=== PATIENT | female | born 1990 | race Caucasian/White ===

== ENCOUNTER 2021-04-26 10:01 | Outpatient (CLI) | payer BC | END 2021-04-26 23:59 | disposition home or self-care (01) | LOC: LAB 10:01 | PROVIDERS: ATTEND Family Medicine | DX: R10.9 Unspecified abdominal pain (principal) | CPT/HCPCS: 87086 ==

== ENCOUNTER 2021-05-18 19:21 | Outpatient (CLI) | payer BC ==
[2021-05-18 19:59] LABS: BASOPHILS % (AUTO) 0.4 %; EOSINOPHILS # (AUTO) 0.1 10^3/uL (0.0-0.7); EOSINOPHILS % (AUTO) 0.9 %; HCT - HEMATOCRIT 37.4 % (37.0-47.0); HGB - HEMOGLOBIN 12.4 g/dL (12.0-16.0); LYMPHOCYTES # (AUTO) 2.6 10^3/uL (1.5-3.5); LYMPHOCYTES % (AUTO) 23.4 %; MEAN CORPUSCULAR HEMOGLOBIN 29.4 pg (27.0-31.0); MEAN CORPUSCULAR HGB CONC 33.2 g/dL (32.0-36.0); MEAN CORPUSCULAR VOLUME 88.6 fL (81.0-99.0); MEAN PLATELET VOLUME 9.4 fL (7.9-10.8); MONOCYTES # (AUTO) 0.5 10^3/uL (0.0-1.0); MONOCYTES % (AUTO) 4.9 %; NEUTROPHILS # (AUTO) 7.6 10^3/uL (1.5-6.6); NEUTROPHILS % (AUTO) 69.9 %; PLT - PLATELET COUNT 353 10^3/uL (130-450); RED BLOOD COUNT 4.22 10^6/uL (4.20-5.40); RED CELL DISTRIBUTION WIDTH 12.1 % (12.0-15.0); WHITE BLOOD COUNT 10.9 x10^3/uL (4.8-10.8)
[2021-05-18 20:03] LABS: BILIRUBIN,URINE NEGATIVE (NEGATIVE); GLUCOSE, URINE (UA) NEGATIVE (NEGATIVE); KETONES,URINE (UA) NEGATIVE (NEGATIVE); LEUKOCYTE ESTERASE, URINE NEGATIVE (NEGATIVE); NITRITE,URINE NEGATIVE (NEGATIVE); OCCULT BLOOD,URINE NEGATIVE (NEGATIVE); PROTEIN,URINE NEGATIVE (NEGATIVE); UROBILINOGEN,URINE 0.2 (NORMAL) E.U./dL (NORMAL)
[2021-05-18 20:05] LABS: CLARITY,URINE CLEAR (CLEAR)
[2021-05-18 20:10] LABS: BACTERIA,URINE Few /HPF (None Seen); RBC,URINE 0-5 /HPF (0-5); SQUAMOUS EPITHELIAL CELL,UR MOD Squamous (<= Few); WBC,URINE 0-3 /HPF (0-5)
--- NOTE | 2021-05-18 21:30 | Ultrasound Report ---
PROCEDURE: OB First Trimester INDICATIONS: +PREG TEST OUTSIDE/PRIOR DATING DATA: Last menstrual period (LMP): Unknown LMP-based estimated date of delivery (MAGEN): Unknown. First dating scan (date and location): 05/18/2021. Estimated date of delivery (MAGEN) from first dating scan: 12/23/2021. The below data below was generated using the study generated MAGEN of 12/23/2021 TECHNIQUE: Real-time scanning was performed of the fetus and maternal pelvic organs, with image documentation. COMPARISON: None FINDINGS: Embryo: Single intrauterine gestational sac is seen with fetus and yolk sac seen. [place]-rump length measures 2.08 cm. Estimated gestational age is 8 weeks, 5 days. Heart rate: 178 bpm. Small subchorionic hemorrhage is seen measures 1.03 x 0.84 x 2.09 cm in size. Maternal organs: Corpus luteum is seen in right ovary and measures 1.8 x 2.3 x 1.8 cm in size. Left o vary is within normal limits. IMPRESSION: 1. Single live intrauterine gestation with fetus and yolk sac seen. heart rate is 178 bpm. Myranda mated gestational age is 8 weeks, 5 days. 2. Small subchorionic hemorrhage as above. 3. Small corpus luteum in right ovary as above. Reviewed by: Jarrell Barillas MD on 05/18/2021 9:28 PM PST Approved by: Jarrell Barillas MD on 05/18/2021 9:28 PM PST Station ID: [id number]
[2021-05-20 15:46] LABS: HEPATITIS B SURFACE ANTIGEN NON-REACTIVE (NON-REACTIVE); HEPATITIS C ANTIBODY NON-REACTIVE (NON-REACTIVE)
[2021-05-20 17:26] LABS: HIV AG/AB 4TH GEN NON-REACTIVE (NON-REACTIVE)
== END 2021-05-18 19:22 | disposition home or self-care (01) ==
LOC: DI 19:21
PROVIDERS: ATTEND Nurse Practitioner Obstetrics & Gynecology
DX: Z36.89 Encounter for other specified antenatal screening (principal); O20.8 Other hemorrhage in early pregnancy; O34.82 Maternal care for other abnormalities of pelvic organs, second trimester; N83.11 Corpus luteum cyst of right ovary; Z3A.08 8 weeks gestation of pregnancy
CPT/HCPCS: 36415; 81001; 85025; 86592; 86762; 86787; 86803; 86850; 86900; 86901; 87086; 87340; 87389

== ENCOUNTER 2021-06-03 08:00 | Outpatient (CLI) | payer BC ==
[2021-06-03 22:56] LABS: CHLAMYDIA TRACHOMATIS DNA NEGATIVE (NEGATIVE); NEISSERIA GONORRHOEAE DNA NEGATIVE (NEGATIVE); TRICHOMONAS VAGINALIS DNA NEGATIVE (NEGATIVE)
== END 2021-06-03 23:59 | disposition home or self-care (01) ==
LOC: LAB 08:00
PROVIDERS: ATTEND Nurse Practitioner Obstetrics & Gynecology
DX: Z11.3 Encounter for screening for infections with a predominantly sexual mode of transmission (principal)
CPT/HCPCS: 87491; 87591; 87661

== ENCOUNTER 2021-06-08 12:46 | Outpatient (CLI) | payer BC | END 2021-06-08 12:47 | disposition home or self-care (01) | LOC: LAB 12:46 | PROVIDERS: ATTEND Nurse Practitioner Obstetrics & Gynecology | DX: Z36.8A Encounter for antenatal screening for other genetic defects (principal) | CPT/HCPCS: 36415; 81599 ==

== ENCOUNTER 2021-06-30 17:04 | Outpatient (CLI) | payer BC | END 2021-06-30 17:05 | disposition home or self-care (01) | LOC: LAB 17:04 | PROVIDERS: ATTEND Nurse Practitioner Obstetrics & Gynecology | DX: Z34.90 Encounter for supervision of normal pregnancy, unspecified, unspecified trimester (principal); Z36.89 Encounter for other specified antenatal screening; Z36.8A Encounter for antenatal screening for other genetic defects | CPT/HCPCS: 82105; 82677; 84163; 84702; 86336 ==

== ENCOUNTER 2021-07-06 14:23 | Emergency (ER) | payer BC ==
[2021-07-06 15:39] LABS: BASOPHILS % (AUTO) 0.3 %; EOSINOPHILS # (AUTO) 0.1 10^3/uL (0.0-0.7); EOSINOPHILS % (AUTO) 0.6 %; HCT - HEMATOCRIT 39.2 % (37.0-47.0); HGB - HEMOGLOBIN 12.8 g/dL (12.0-16.0); LYMPHOCYTES # (AUTO) 1.3 10^3/uL (1.5-3.5); LYMPHOCYTES % (AUTO) 16.6 %; MEAN CORPUSCULAR HGB CONC 32.7 g/dL (32.0-36.0); MEAN CORPUSCULAR VOLUME 88.7 fL (81.0-99.0); MEAN PLATELET VOLUME 8.9 fL (7.9-10.8); MONOCYTES # (AUTO) 0.4 10^3/uL (0.0-1.0); MONOCYTES % (AUTO) 5.4 %; NEUTROPHILS # (AUTO) 5.9 10^3/uL (1.5-6.6); NEUTROPHILS % (AUTO) 76.7 %; PLT - PLATELET COUNT 267 10^3/uL (130-450); RED BLOOD COUNT 4.42 10^6/uL (4.20-5.40); RED CELL DISTRIBUTION WIDTH 12.5 % (12.0-15.0); WHITE BLOOD COUNT 7.7 x10^3/uL (4.8-10.8)
[2021-07-06] MEDS: SODIUM CHLORIDE 0.9% 1,000 ML IV STA (15:43)
[2021-07-06 15:48] LABS: ALBUMIN 3.3 g/dL (3.2-5.5); ALBUMIN/GLOBULIN RATIO 0.9 (1.0-2.2); ALKALINE PHOSPHATASE 67 IU/L (42-121); ALT ALANINE AMINOTRANSFERASE 32 IU/L (10-60); AST ASPARTATE AMINOTRANSFERASE 24 IU/L (10-42); BILIRUBIN,TOTAL < 0.2 mg/dL (0.2-1.0); BUN - BLOOD UREA NITROGEN 7 mg/dL (6-20); CALCIUM 8.7 mg/dL (8.5-10.3); CARBON DIOXIDE - CO2 24 mmol/L (21-32); CHLORIDE 99 mmol/L (101-111); CREATININE 0.4 mg/dL (0.4-1.0); GFR - MDRD 189 (>89); GLUCOSE 101 mg/dL (70-100); LIPASE 20 U/L (22-51); POTASSIUM 3.9 mmol/L (3.5-5.0); SODIUM 133 mmol/L (135-145)
--- NOTE | 2021-07-06 15:52 | ED Physician Documentation ---
PD HPI URI - Stated complaint Stated Complaint: C+ CONGESTION/DIZZY - Chief complaint Chief Complaint: General - History obtained from History obtained from: Patient - History of Present Illness Timing - onset: How many days ago (5) Timing duration: Days (5) Timing details: Abrupt onset, Still present Associated symptoms: Fever, Chills, Nasal congestion, Sore throat, Dry cough, NVD (nausea with some vomiting few times. not much diarrhea per se.), Other (somewhat lightheaded, has general headache, worse in back of head, and some vertigo with position change.). No: Chest pain, Dyspnea Contributing factors: Sick contact ( tested positive for COVID, and patient tested positive 4 days ago.) Worsened by: Activity Similar symptoms before: Has not had sx before Recently seen: Clinic Review of Systems Constitutional: reports: Fever, Chills, Myalgias Nose: reports: Rhinorrhea / runny nose, Congestion Throat: reports: Sore throat Cardiac: denies: Chest pain / pressure Respiratory: reports: Cough (mild). denies: Dyspnea, Wheezing GI: reports: Nausea. denies: Abdominal Pain, Diarrhea : reports: Now EGA (17 weeks). denies: Dysuria, Discharge, Vaginal bleeding PD PAST MEDICAL HISTORY - Past Medical History Cardiovascular: None Respiratory: None Neuro: None Endocrine/Autoimmune: None - Present Medications Home Medications: Ambulatory Orders Medication Instructions Recorded Confirmed Acetaminophen [Acetaminophen Extra 500 mg PO QID PRN #50 tablet 07/06/21 Strength] Meclizine HCl [Motion Sickness] 25 mg PO Q6H PRN #20 tablet 07/06/21 Pnv No.95/Ferrous Fum/Folic AC 2 tab PO DAILY 07/06/21 07/06/21 [ Tablet] dexAMETHasone [Decadron] 4 mg PO DAILY #5 tablet 07/06/21 - Allergies Allergies/Adverse Reactions: Allergies Allergy/AdvReac Type Severity Reaction Status Date / Time No Known Drug Allergies Allergy Verified 07/06/21 14:40 - Living Situation Living Situation: reports: With spouse/s.o. Living Arrangement: reports: At home PD ED PE NORMAL - Vitals Vital signs reviewed: Yes - General General: Alert and oriented X 3, Well developed/nourished - HEENT HEENT: Ears normal, Moist mucous membranes, Pharynx benign - Neck Neck: Supple, no meningeal sign, No adenopathy - Cardiac Cardiac: RRR, No murmur - Respiratory Respiratory: Clear bilaterally - Abdomen Abdomen: Soft, Non tender, Other (gravid with fundus 2-3 cm below umbilicus. Nontender. BEdside U/S showing normal FHR, movement, position. ) - Back Back: No CVA TTP - Derm Derm: Normal color, Warm and dry - Extremities Extremities: No edema, No calf tenderness / cord - Neuro Neuro: Alert and oriented X 3, No motor deficit, Normal speech Results - Vitals Vitals: Vital Signs - 24 hr 07/06/21 17:36 Heart Rate 79 Respiratory 18 Rate Blood Pressure 121/84 H O2 Saturation 100 Oxygen O2 Source Room air - Labs Labs: Laboratory Tests 07/06/21 07/06/21 07/06/21 15:28 15:28 15:30 WBC 7.7 RBC 4.42 Hgb 12.8 Hct 39.2 MCV 88.7 MCH 29.0 MCHC 32.7 RDW 12.5 Plt Count 267 MPV 8.9 Neut # (Auto) 5.9 Lymph # (Auto) 1.3 L [place] # (Auto) 0.4 Eos # (Auto) 0.1 Baso # (Auto) 0.0 Absolute Nucleated RBC 0.00 Nucleated RBC % 0.0 Sodium 133 L Potassium 3.9 Chloride 99 L Carbon Dioxide 24 Anion Gap 10.0 BUN 7 Creatinine 0.4 Estimated GFR (MDRD) 189 Glucose 101 H Calcium 8.7 Total Bilirubin < 0.2 L AST 24 ALT 32 Alkaline Phosphatase 67 Total Protein 7.0 Albumin 3.3 Globulin 3.7 Albumin/Globulin Ratio 0.9 L Lipase 20 L Urine Color YELLOW Urine Clarity CLOUDY Urine pH 7.0 Ur Specific [place] 1.025 Urine Protein NEGATIVE Urine Glucose (UA) NEGATIVE Urine Ketones 40 H Urine Occult Blood NEGATIVE Urine Nitrite NEGATIVE Urine Bilirubin NEGATIVE Urine Urobilinogen 0.2 (NORMAL) Ur Leukocyte Esterase NEGATIVE Urine RBC None Seen Urine WBC 0-3 Ur Squamous Epith Cells MOD Squamous H Amorphous Sediment Few Urine Bacteria None Seen Ur Microscopic Review INDICATED Urine Culture Comments NOT INDICATED PD MEDICAL DECISION MAKING - ED course Complexity details: re-evaluated patient (given IV fluids to ensure fully hydrated. BEdside U/S showing normal FHR, movement, and position. ), considered differential (has COVID by home rapid Ag test. Having moderate URI symptoms and nausea, mild cough/dyspnea. FEeling some lightheaded, but more so describes vertigo, presume related to nasosinus congestion. General headache but does not appear meningitic. ), d/w patient Departure - Departure Disposition: 01 Home, Self Care Clinical Impression: Vertigo, COVID-19 Headache Qualifiers: Headache type: unspecified Headache chronicity pattern: acute headache Intractability: not intractable Qualified Code(s): R51.9 - Headache, unspecified Qualifiers: Weeks of gestation: 17 weeks Qualified Code(s): Z3A.17 - 17 weeks gestation of Condition: Stable Record reviewed to determine appropriate education?: Yes Follow-Up: Joanne Brink CNM, [facility] [Primary Care Provider] - Prescriptions: Acetaminophen [Acetaminophen Extra Strength] 500 mg PO QID PRN #50 tablet PRN Reason: Pain dexAMETHasone [Decadron] 4 mg PO DAILY #5 tablet Meclizine HCl [Motion Sickness] 25 mg PO Q6H PRN #20 tablet PRN Reason: Vertigo Comments: Your symptoms seem consistent with the upper respiratory component with Covid including the congestion and pressure and headache. We gave you some IV fluids to ensure not under hydrated. The vertigo would relate to some inflammation in the inner ear. Treating with some antihistamine and anti-inflammatory can help with the symptoms. Stay well-hydrated. Tylenol 500 mg every 4-6 hours for pain. At this point in you can still add some ibuprofen or naproxen 2 tablets 3 times a day if needed. Do not take any NSAIDs after 20 weeks of . Tylenol is okay through all of . Recheck if not improving well over the next several days or so. Follow-up with your women's health clinic. I transmitted the prescriptions to [facility] pharmacy in [place]. Discharge Date/Time: 07/06/21 17:52
[2021-07-06 16:09] LABS: BILIRUBIN,URINE NEGATIVE (NEGATIVE); GLUCOSE, URINE (UA) NEGATIVE (NEGATIVE); KETONES,URINE (UA) 40 mg/dL (NEGATIVE); LEUKOCYTE ESTERASE, URINE NEGATIVE (NEGATIVE); NITRITE,URINE NEGATIVE (NEGATIVE); OCCULT BLOOD,URINE NEGATIVE (NEGATIVE); PROTEIN,URINE NEGATIVE (NEGATIVE); UROBILINOGEN,URINE 0.2 (NORMAL) E.U./dL (NORMAL)
[2021-07-06 16:13] LABS: CLARITY,URINE CLOUDY (CLEAR)
[2021-07-06 16:16] LABS: AMORPHOUS SEDIMENT,UR Few /LPF; BACTERIA,URINE None Seen /HPF (None Seen); RBC,URINE None Seen /HPF (0-5); SQUAMOUS EPITHELIAL CELL,UR MOD Squamous (<= Few); WBC,URINE 0-3 /HPF (0-5)
[2021-07-06] MEDS: DEXAMETHASONE 10 MG/ML VIAL IVP STA (16:50)
[2021-07-06] MEDS: MECLIZINE 12.5 MG TABLET PO STA (16:50)
[2021-07-06] MEDS: KETOROLAC 15 MG/ML VIAL IVP STA (16:50)
[2021-07-06] MEDS: ACETAMINOPHEN 325 MG TABLET PO STA (17:28)
[2021-07-06 17:38] VITALS: BP 121/84
== END 2021-07-06 17:52 | disposition home or self-care (01) ==
LOC: ED 14:23
DX: O98.512 Other viral diseases complicating pregnancy, second trimester (principal); U07.1 COVID-19; O26.92 Pregnancy related conditions, unspecified, second trimester; R51.9 Headache, unspecified; Z3A.17 17 weeks gestation of pregnancy
CPT/HCPCS: 36415; 80053; 81001; 83690; 85025; 96361; 96374; 99283; A9270; 81003; 87086

== ENCOUNTER 2021-08-05 16:39 | Outpatient (CLI) | payer BC ==
--- NOTE | 2021-08-05 20:10 | Ultrasound Report ---
PROCEDURE: OB Detailed Eval INDICATIONS: SUPERVISION OF NORMAL OUTSIDE/PRIOR DATING DATA: Last menstrual period (LMP): Unknown. LMP-based estimated date of delivery (MAGEN): Unknown. First dating scan (date and location): 05/18/2021. Estimated date of delivery (MAGEN) from first dating scan: 12/23/2021. The below data below was generated using the ultrasound MAGEN of 12/23/2021 TECHNIQUE: Real-time scanning was performed of the fetus, with image documentation and biometric measurements. Endovaginal scanning: Not performed COMPARISON: 05/18/2021 FINDINGS: General: A single living intrauterine gestation is present. Presentation: Variable Placenta: Placental position is fundal and posterior, without previa. Amniotic fluid index: 15 cm, within normal limits for gestational age. heart rate: 162 beats per minute. Maternal cervical canal: 3.2 cm long, closed; normal length is 2.5 cm or more. biometrics: Biparietal diameter: 4.4 cm, 19 weeks 2 days Head circumference: 16.9 cm, 19 weeks 4 days Abdominal circumference: 14.67 cm, 20 weeks 0 days Femur length: 3.11 cm, 19 weeks 5 days Estimated gestational age from initial scan: 20 weeks 0 days Composite gestational age from present scan: 19 weeks 4 days Estimated weight and percentile: 312 g, 32.7 percentile Measurement variability in biometric dating: +/- 10 days from 12-20 weeks gestation, +/- 2 weeks from 20-30 weeks gestation, +/- 3 weeks at 30 weeks gestation or later. Anatomic survey: Neuro: Ventricles are normal at less than 10 mm. Cisterna magna is normal at 3-11 mm. Cerebellum i s normal in size and morphology. Nuchal skin fold: Normal at less than 6 mm between 14 and 20 weeks gestational age. Face: Nose and lips, facial profile are normal. Spine: No evidence for spina bifida. Heart: 4-chambered heart is present, with normal ventricular outflow tracts. Diaphragm: Diaphragm is intact. Stomach: Left-sided stomach is present. Kidneys: No hydronephrosis. Normal is less than 5 mm in 2nd trimester, less than 7 mm in 3rd trimester. Cord: 3 vessel cord has orthotopic insertion. Bladder: Normal in size. Extremities: All 4 extremities are visualized. IMPRESSION: 1. Living second trimester intrauterine . Current ultrasound age is 3 days less than clinica l dates based on initial ultrasound. 2. Normal anatomy study. Reviewed by: Abel Solorio MD on 08/05/2021 8:09 PM [facility] [place] Approved by: Abel Solorio MD on 08/05/2021 8:09 PM [facility] [place] Station ID: [id number]
== END 2021-08-05 16:40 | disposition home or self-care (01) ==
LOC: DI 16:39
PROVIDERS: ATTEND Nurse Practitioner Obstetrics & Gynecology
DX: Z34.02 Encounter for supervision of normal first pregnancy, second trimester (principal); Z36.89 Encounter for other specified antenatal screening; Z3A.19 19 weeks gestation of pregnancy

== ENCOUNTER 2021-10-05 17:29 | Outpatient (CLI) | payer BC ==
[2021-10-05 18:47] LABS: HCT - HEMATOCRIT 35.1 % (37.0-47.0); HGB - HEMOGLOBIN 11.5 g/dL (12.0-16.0); MEAN CORPUSCULAR HEMOGLOBIN 29.6 pg (27.0-31.0); MEAN CORPUSCULAR HGB CONC 32.8 g/dL (32.0-36.0); MEAN CORPUSCULAR VOLUME 90.2 fL (81.0-99.0); RED BLOOD COUNT 3.89 10^6/uL (4.20-5.40); RED CELL DISTRIBUTION WIDTH 12.3 % (12.0-15.0); WHITE BLOOD COUNT 10.5 x10^3/uL (4.8-10.8)
== END 2021-10-05 17:30 | disposition home or self-care (01) ==
LOC: LAB 17:29
PROVIDERS: ATTEND Nurse Practitioner Obstetrics & Gynecology
DX: Z36.9 Encounter for antenatal screening, unspecified (principal)
CPT/HCPCS: 36415; 82950; 85027

== ENCOUNTER 2021-12-06 06:49 | Inpatient (IN) | payer BC ==
[2021-12-06] MEDS ORDERED: TERBUTALINE 1 MG/ML VIAL SUBQ ONE (07:58)
--- NOTE | 2021-12-06 08:00 | HISTORY & PHYSICAL EXAMINATION ---
Admit History - : 1 Parity: 0 Care: positive: [facility] Risk/History: positive: None Complications This : positive: Other ( malpresentation) Smoking Status: Never smoker - Mother's Labs Mother's Blood Type: positive: O Mother's RH: positive: Positive GBS: positive: Group B Step Negative Rubella Status: positive: Immune - Other Maternal History Other Maternal History: HPI: Patient is a 31-year-old G1, P0 at 37 weeks 4 days gestation here for external cephalic version. She has good movement. Few contractions over the weekend, but none today. Denies loss of fluid. No BAILEY/BV or RUQP. No vaginal bleeding. Denies nausea and vomiting. Denies urinary urgency or dysuria. course was unremarkable. She has managed by KELLY Lawrence All other symptoms reviewed and were negative except per HPI. PMH Unremarkable PSH Unremarkable OB History SH Denies tobacco, uncle, drugs Family History Noncontributory Allergies No known drug allergies Medications vitamins Physical exam: General: Alert, oriented, no acute distress Head: Normal cephalic atraumatic Eyes: PERRLA, extraocular motions intact. Respiratory: Normal rate of respiration. No accessory muscle use, normal respiratory effort. Cardiovascular: Regular rate and rhythm Abdomen: Gravid, nontender, nondistended Extremities: Normal range of motion Neuro: Oriented x3. Normal movements Psych: Appropriate mood and affect. Normal judgment and insight FHT: 130 beats per baseline, moderate variability, accelerations present, no decelerations. Performed and read 12/06/21. [place]: 3 to 5 minutes on monitor, but not palpable and patient cannot sense. Plan Two 11-year-old G1, P0 at 37 weeks 4 days gestation with malpresentation 1. malpresentation -Plan for outpatient procedure of external cephalic version. Patient was consented about the risks, benefits, alternatives of external cephalic version. We discussed the risk of rupture of membranes, heart rate aberrations, placental abruption. We also discussed the risk of urgent section if this had complications. She is understanding and wishes to proceed. -We discussed the benefits of epidural in this procedure. She would like to try initially without epidural. Anesthesia will discuss epidural with patient prior to procedure. -Plan for terbutaline for uterine relaxation. 2. 37 weeks gestation -NST, MARCELINO Meds/Allgy - Home Medications Home Medications: Ambulatory Orders Medication Instructions Recorded Confirmed Acetaminophen [Acetaminophen Extra 500 mg PO QID PRN #50 tablet 07/06/21 Strength] Meclizine HCl [Motion Sickness] 25 mg PO Q6H PRN #20 tablet 07/06/21 Pnv No.95/Ferrous Fum/Folic AC 2 tab PO DAILY 07/06/21 07/06/21 [ Tablet] dexAMETHasone [Decadron] 4 mg PO DAILY #5 tablet 07/06/21 - Allergies Allergies/Adverse Reactions: Allergies Allergy/AdvReac Type Severity Reaction Status Date / Time No Known Drug Allergies Allergy Verified 07/06/21 14:40 Physical - Abdominal Exam Vital Signs: Temp Pulse Resp BP Pulse Ox 98.6 F 88 20 128/85 H 12/06/21 07:40 12/06/21 07:40 12/06/21 07:40 12/06/21 07:40
--- NOTE | 2021-12-06 08:06 | ANESTHESIA ---
Pre-Anesthesia VS, & Labs - Diagnosis IUP, breech - Procedure version, cervical ripening, induction of labor Vital Signs: Temp Pulse Resp BP Pulse Ox 37 C 88 20 128/85 H 12/06/21 07:40 12/06/21 07:40 12/06/21 07:40 12/06/21 07:40 Height: 5 ft 1 in Weight (kg): 64.41 kg Body Mass Index: 26.8 BMI Classification: Overweight - NPO Last Fluid Intake: this AM - Is Patient ?: Yes - Lab Results Lab results reviewed: Yes Home Medications and Allergies Pnv No.95/Ferrous Fum/Folic AC [ Tablet] 2 tab PO DAILY 07/06/21 Allergies/Adverse Reactions: Allergies Allergy/AdvReac Type Severity Reaction Status Date / Time No Known Drug Allergies Allergy Verified 07/06/21 14:40 Anes History & Medical History - Anesthetic History Anesthesia Complications: reports: No previous complications Family history of Anesthesia Complications: Denies Family history of Malignant Hyperthermia: Denies - Medical History Cardiovascular: reports: None Pulmonary: reports: None Neuro: reports: None Endocrine/Autoimmune: reports: None Smoking Status: Never smoker - Obstetrical History : 1 Parity: 0 Events: reports: None Complications: reports: Other ( malpresentation) Exam General: Alert, Oriented x3, Cooperative Dental: WNL Mouth Openin Fingerbreadth Neck Mobility: Normal Mallampati classification: II Thyromental Distance: 4-6 cm Respiratory: Lungs clear, Normal breath sounds, No respiratory distress Cardiovascular: Regular rate Neurological: Normal speech Mental/Cognitive Status: Alert/Oriented X3, Normal for patient Cognitive Status: Within normal limits Plan Anesthesia Type: Epidural Consent for Procedure(s) Verified and Reviewed: Yes Code Status: Attempt Resuscitation ASA classification: 2-Mild systemic disease Is this case an emergency?: No
[2021-12-06 08:19] LABS: BASOPHILS % (AUTO) 0.4 %; EOSINOPHILS # (AUTO) 0.1 10^3/uL (0.0-0.7); EOSINOPHILS % (AUTO) 0.9 %; HCT - HEMATOCRIT 35.7 % (37.0-47.0); HGB - HEMOGLOBIN 11.4 g/dL (12.0-16.0); LYMPHOCYTES # (AUTO) 2.6 10^3/uL (1.5-3.5); LYMPHOCYTES % (AUTO) 24.8 %; MEAN CORPUSCULAR HEMOGLOBIN 27.6 pg (27.0-31.0); MEAN CORPUSCULAR HGB CONC 31.9 g/dL (32.0-36.0); MEAN CORPUSCULAR VOLUME 86.4 fL (81.0-99.0); MEAN PLATELET VOLUME 9.7 fL (7.9-10.8); MONOCYTES # (AUTO) 0.7 10^3/uL (0.0-1.0); MONOCYTES % (AUTO) 6.3 %; NEUTROPHILS % (AUTO) 66.8 %; PLT - PLATELET COUNT 315 10^3/uL (130-450); RED BLOOD COUNT 4.13 10^6/uL (4.20-5.40); RED CELL DISTRIBUTION WIDTH 12.4 % (12.0-15.0); WHITE BLOOD COUNT 10.4 x10^3/uL (4.8-10.8)
[2021-12-06] MEDS: LACTATED RINGERS 1,000 ML IV SCH ×2 (08:20→15:36)
--- NOTE | 2021-12-06 08:32 | Ultrasound Report ---
PROCEDURE: OB Limited INDICATIONS: external cephalic version OUTSIDE/PRIOR DATING DATA: Last menstrual period (LMP): Unknown. LMP-based estimated date of delivery (MAGEN): Unknown. First dating scan (date and location): 05/18/2021. Estimated date of delivery (MAGEN) from first dating scan: 12/23/2020. The below data below was generated using the ultrasound MAGEN of 12/23/2020 TECHNIQUE: Real-time scanning was performed of the fetus, with image documentation. COMPARISON: OB ultrasound 05/18/2021, 08/05/2021 FINDINGS: A single living intrauterine gestation is present. Presentation: Breech Placenta: Placental position is fundal, without previa. Amniotic fluid index: 11.9 cm, within normal limits for gestational age. Largest pocket 5.9 cm heart rate: 148 beats per minutes. Maternal cervical canal: 4.4 cm long; normal length is 2.5 cm or more. Estimated gestational age from initial scan: 37 weeks 4 days. IMPRESSION: Single live intrauterine with ultrasound gestational age 37 weeks 4 days. Breech position is present. Reviewed by: Ngozi Rangle MD on 12/06/2021 8:30 AM PDT Approved by: Ngozi Rangel MD on 12/06/2021 8:30 AM PDT Station ID: [id number]
[2021-12-06] MEDS ORDERED: ROPIVACAINE 0.2% PF 10 ML VIAL ONE (09:12)
[2021-12-06] MEDS ORDERED: NALBUPHINE 10 MG/ML AMP IVP PRN (09:38)
[2021-12-06] MEDS ORDERED: ROPIVACAINE 0.2% 200 MG/100 ML BAG EP PRN (09:38)
[2021-12-06] MEDS ORDERED: ONDANSETRON 4 MG/2 ML VIAL IVP PRN ×2 (09:38→11:33)
[2021-12-06] MEDS ORDERED: ePHEDrine 50 MG/ML VIAL IVP PRN ×2 (09:38→11:33)
[2021-12-06] MEDS ORDERED: METOCLOPRAMIDE 10 MG/2 ML VIAL IVP PRN ×2 (09:38→11:33)
[2021-12-06] MEDS ORDERED: diphenhydrAMINE INJ 50 MG/ML VIAL IVP PRN (09:38)
[2021-12-06] MEDS ORDERED: NALOXONE 0.4 MG/ML VIAL IVP PRN ×2 (09:38→11:33)
[2021-12-06] MEDS ORDERED: ePHEDrine 50 MG/ML VIAL IVP ONE ×2 (09:49→10:08)
[2021-12-06] MEDS ORDERED: OXYTOCIN 10 UNIT/ML VIAL ONE (10:08)
[2021-12-06] MEDS ORDERED: ROPIVACAINE 0.5% PF 20 ML AMPULE ONE ×2 (10:16→10:48)
[2021-12-06] MEDS ORDERED: METHYLERGONOVINE 0.2 MG/ML VIAL ONE (10:17)
[2021-12-06] MEDS ORDERED: CARBOPROST TROMETHAMINE 250 MCG/ML AMP IM ONE (10:17)
[2021-12-06] MEDS ORDERED: ceFAZolin 1 GM VIAL ONE (10:21)
[2021-12-06] MEDS ORDERED: KETOROLAC 30 MG/ML VIAL ONE (10:31)
[2021-12-06] MEDS ORDERED: ACETAMINOPHEN 1,000 MG/100 ML 100 ML IV ONE (10:38)
[2021-12-06] MEDS ORDERED: LACTATED RINGERS 1,000 ML IV ONE (11:05)
[2021-12-06] MEDS ORDERED: oxyCODONE 5 MG TABLET PO PRN (11:13)
[2021-12-06] MEDS ORDERED: OXYTOCIN/SODIUM CHLORIDE 500 ML IV PRN (11:13)
[2021-12-06] MEDS ORDERED: ONDANSETRON ODT 4 MG TABLET TL PRN (11:13)
[2021-12-06] MEDS ORDERED: SODIUM CHLORIDE FLUSH 0.9% 10 ML SYRINGE IVP PRN (11:13)
[2021-12-06] MEDS ORDERED: SIMETHICONE CHEW 80 MG TABLET PO PRN (11:13)
[2021-12-06] MEDS ORDERED: ATROPINE ABBOJECT 1 MG/10 ML SYRINGE IVP PRN (11:33)
[2021-12-06] MEDS ORDERED: HYDROmorphone 0.5 MG/0.5 ML SYRINGE IVP PRN (11:33)
[2021-12-06] MEDS ORDERED: MORPHINE 2 MG/ML CARPUJECT IVP PRN (11:33)
[2021-12-06] MEDS ORDERED: fentaNYL 100 MCG/2 ML VIAL IVP PRN (11:33)
--- NOTE | 2021-12-06 11:33 | OPERATIVE REPORT ---
Operative Report - General Admit Date: 12/06/21 Planned Procedure: Primary low transverse section Pre-Op Diagnosis: Breech presentation, 37 weeks gestation, failed ECV Procedure Performed: Primary low transverse section Post Op Diagnosis: Breech presentation, 37 weeks gestation, failed ECV - Procedure Note Primary Surgeon: Raphael Omalley MD Secondary Surgeon: Eli Montana MD Anesthesia Provider: Chico Mccall CRNA Anesthesia Technique: Epidural Pathology: None Estimated Blood Loss (mL): 600 Complications: None - Other Other Information/Narrative: section was recommended. Risks, benefits and alternatives were discussed including but not limited to infection, bleeding that may require blood products or hysterectomy for life saving measures, injury to surrounding organs including but not limited to bowel, bladder, ureters, tubes and ovaries and/or the baby. Should injury occur it could require longer/additional surgery to repair. The patient stated understanding and desired to proceed. All questions were answered posed by patient. Patient was verbally counseled on the risks and benefits of section. She had an attempted external cephalic version that was unsuccessful and led to prolonged bradycardia. Patient was previously counseled on the risk of moving forward with section. We discussed the risk, benefits, alternatives of section. We included the risk of bleeding, infection, damage to other organs. She agreed to proceed with procedure and all questions were answered. Prior to being taken to the OR, 2 grams of cefazolin IV was administered. The patient was taken to the operating room where regional anesthesia was found to be adequate. She was then prepared and draped in the usual sterile fashion in the dorsal supine position with a leftward tilt displacing the uterus. Santoro was draining to gravity. SCDs were on bilateral lower extremities. A pfannenstiel skin incision was then made with the scalpel and carried through to the underlying layer of fascia. The fascia was incised in the midline and the incision extended laterally with the Pollard scissors. The superior aspect of the f acial incision was then grasped with the Rishabh clamps, elevated and the underlying rectus muscles dissected off sharply. Attention was then turned to the inferior aspect of this incision which in a similar fashion was grasped, elevated with the Rishabh clamps and the rectus muscle dissected off sharply. The rectus muscles were in the midline. The peritoneum identified, grasped with the pick-ups and entered sharply with the Metzenbaum scissors. The peritoneal incision was then extended superiorly and inferiorly with good visualization of the bladder. The bladder blade was inserted. The vesicouterine peritoneum was identified, grasped with the pick-ups, and entered sharply with Metzenbaum scissors. This incision was then extended laterally and the bladder flap created digitally. The bladder blade was reinserted. The lower uterine segment was identified and incised in a transverse fashion with the scalpel. The uterine incision was then extended bluntly laterally. Artificial rupture of membranes demonstrated clear fluid. The bladder blade was removed. The fetus was noted to be in breech presentation. It was delivered to the level of the sacrum, and both legs were then brought to the hysterotomy. The infant was then covered with a wet towel and delivered to the scapula. The left shoulder was rotated anteriorly and the arm was flexed, internally rotated, then extended through the hysterotomy. The right arm was then similarly delivered. He had then delivered atraumatically.The infants mouth and nose were bulb suctioned. The umbilical cord was clamped times two and cut. The was handed to the clock and watch hands mounter for evaluation.. Cord blood was obtained. The placenta was removed with gentle traction. 20 units of oxytocin were added to IVF and allowed to run freely. The uterus was exteriorized and cleared of all clots and debris. The uterine incision was inspected and found to be without any extensions and was repaired with 0 Vicryl in a running, locked fashion. A second imbricating layer was performed. Upon inspection, the repaired hysterotomy was found to be hemostatic. The uterus was firm and returned to the abdomen. The gutters were cleared of all clots and debris. The fascia was reapproximated with 0 Vicryl in a running fashion. The skin was closed in a subcuticular fashion with 4-0 Vicryl. The patient tolerated the procedure well. Sponge, lap and needle counts were correct times three. The patient was taken to the recovery room in stable condition. weight: 2517 g.
[2021-12-06] MEDS ORDERED: LACTATED RINGERS 1,000 ML IV SCH ×2 (12:00)
[2021-12-06] MEDS ORDERED: SODIUM CHLORIDE 0.65% NASAL SPRAY NAS PRN (13:12)
--- NOTE | 2021-12-06 13:39 | ANESTHESIA POST OP EVALUATION ---
Anesthesia Post Eval - Post Anesthesia Eval Vitals: Last Vital Signs Temp 36.3 C L 12/06/21 12:20 Pulse 69 12/06/21 12:43 Resp 12 12/06/21 12:43 BP 106/59 L 12/06/21 12:43 Pulse Ox 97 12/06/21 12:43 CV Function Including HR & BP: Stable Pain Control: Satisfactory Nausea & Vomiting: Negative Mental Status: Baseline Respiratory Status: Airway Patent Hydration Status: Satisfactory Anesthesia Complications: Other (pt still unable to move feet but sensation and strength has returned to BUE, after experiencing weakness to extremities following procedure.)
--- NOTE | 2021-12-06 16:17 | CONSULTATION NOTE ---
Consultation Report: 1229 Asked to evaluate pt for continued motor/sensory block post C/S. Pt awake and alert, HOB approx 45 degrees, baby in bed. Pt on the monitor and VSS. Pt denies any pain, N/V, SOB. Sat 98% on RA. HOB raised to approx 90 degrees. Dense motor and sensory block to T1. 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 Pt does not feel cold sensation until T1. Pt has full motor and sensory block of BLE. Pt reassured that due to receiving LA dose for version with dosing for C/S shortly afterwards that block may take longer than anticipated to wear off, but VS remain stable and to notify immediately if she notices any SOB or change in respiratory status. Pt states understanding and is thankful. 1502 Rounded on pt. Pt sleeping. VSS. Pt appears to be resting comfortably, HOB remains up approx 90 degrees. Spoke with her partner at the bedside who reports that the pt has full strength and function of BUE, but states he thinks she has minimal motor movement in her feet, but not 100% sure of pt's motor/sensory function in BLE. Will let pt sleep and round again later.
--- NOTE | 2021-12-06 16:52 | CONSULTATION NOTE ---
Consultation Report: Rounded on pt. She is awake and alert, denies any pain/N/V. Pt able to push against resistance with both feet, good equal strength. Pt not able to pick her legs up off the bed, but reports that they feel much stronger than prior. VS remain stable, and pt smiling and laughing, nursing baby.
[2021-12-06] MEDS ORDERED: SODIUM CHLORIDE FLUSH 0.9% 10 ML SYRINGE IVP SCH (17:00)
[2021-12-06] MEDS: KETOROLAC 30 MG/ML VIAL IVP SCH ×2 (17:10→23:05)
--- NOTE | 2021-12-06 21:44 | POST OP PROGRESS NOTE ---
Subjective - General Admit Date: 12/06/21 Procedure Date: 12/06/21 Post Op Days: 0 Procedure Performed: External cephalic version - Other Other Information/Narrative: Surgeon: Raphael Omalley MD Repeater Chief(s): KELLY Lawrence PreOp Dx: Breech presentation PostOp Dx: bradycardia, malpresentation Operation: External Cephalic Version Findings: Stable HR Preprocedure. Prolonged bradycardia during procedure. Clinical Note: Patient is a 31-year-old G1, P0 at 37 weeks 4 days gestation who presented to L&D for a scheduled external cephalic version. Her past medical history is unremarkable. Her current has been uncomplicated, however, at her most recent clinical visit it was found that her current gestation is in a breech presentation. Today she is currently 37 weeks and 4 days gestational age. A reactive heart tracing was obtained prior to moving her to the ultrasound suite for the procedure. Risks of ECV, including abnormal fHR, PROM, abruption, injury to fetus, possible emergency C/S, and failed ECV were discussed with the patient and consent was obtained. Reactive heart tracing was obtained prior to attempted version. The risks of external cephalic version were discussed including abnormal heart rate tracing, prelabor rupture of membranes, placental abruption, injury to fetus, possible urgent section, and failed version. She agreed to these and consent was obtained. Procedure: Using bedside ultrasound, this was confirmed in the breech presentation with adequate amniotic fluid. She declined epidural initially and wanted to try without it. The pelvis was noted to be in the midline with head to maternal right and spine to maternal left. The patient was given subcutaneous terbutaline to aid in movement. Using man an ultrasound gel for lubrication ual pressure, we attempted to rotate the fetus in an cephalic counterclockwise movement. We checked heart tones intermittently through this process with heart tones consistent in the 130s. While we were able to move head from right upper quadrant right lower quadrant, we were unable to get fetus to stay in this position. Patient would not tolerate more, and asked for an epidural. Patient received an epidural and after her recovery, we attempted to rotate fetus. During this process, patient became nauseate and was given ondansetron. After symptoms resolved, we attempted to rotate fetus again. During this time, heart tones were examined and found to be in the 80s to 90s. We stopped the procedure and allowed patient to recover. She would occasionally recover to the 120s, however would quickly drop again to the 80s to 90s despite positional changes and fluid bolus. We advanced the procedure, and we discussed moving forward with section.
[2021-12-07] MEDS: KETOROLAC 30 MG/ML VIAL IVP SCH (05:11)
[2021-12-07 06:12] LABS: BASOPHILS % (AUTO) 0.1 %; EOSINOPHILS % (AUTO) 0.3 %; HCT - HEMATOCRIT 26.6 % (37.0-47.0); HGB - HEMOGLOBIN 8.5 g/dL (12.0-16.0); LYMPHOCYTES # (AUTO) 2.2 10^3/uL (1.5-3.5); LYMPHOCYTES % (AUTO) 16.3 %; MEAN CORPUSCULAR HEMOGLOBIN 27.5 pg (27.0-31.0); MEAN CORPUSCULAR VOLUME 86.1 fL (81.0-99.0); MEAN PLATELET VOLUME 9.6 fL (7.9-10.8); MONOCYTES # (AUTO) 0.9 10^3/uL (0.0-1.0); MONOCYTES % (AUTO) 6.6 %; NEUTROPHILS # (AUTO) 10.3 10^3/uL (1.5-6.6); NEUTROPHILS % (AUTO) 76.2 %; PLT - PLATELET COUNT 219 10^3/uL (130-450); RED BLOOD COUNT 3.09 10^6/uL (4.20-5.40); RED CELL DISTRIBUTION WIDTH 12.4 % (12.0-15.0); WHITE BLOOD COUNT 13.6 x10^3/uL (4.8-10.8)
[2021-12-07] MEDS: ACETAMINOPHEN 500 MG TABLET PO SCH ×3 (08:26→23:47)
[2021-12-07] MEDS: DOCUSATE SODIUM 100 MG CAPSULE PO SCH ×2 (08:26→20:32)
[2021-12-07] MEDS: IBUPROFEN 600 MG TABLET PO SCH ×3 (10:35→21:53)
--- NOTE | 2021-12-07 11:12 | PROVIDER PROGRESS NOTE ---
Subjective - Prog Note Date Prog Note Date: 12/07/21 Prog Note Time: 08:45 - Subjective Subjective: Subjective Patient reports she is doing well. Lochia appropriate. Denies heavy bleeding. Has not ambulated. Pelvic and abdominal pain well-controlled. Tolerating oral intake. Diet: Regular. Has not voided since catheter removal. Passing flatus. Denies BM. Patient is bonding with baby in room Breast feeding going well. Denies feeling lightheaded, dizzy or excessively fatigued. Objective General: Alert, oriented, no apparent distress. Cardiovascular: Regular rate. Regular rhythm. Lungs: No increased work of breathing. Abdomen: Uterus firm. Below umbilicus. No guarding or rebound. Incision: Bandage in place. Assessment and Plan day 1. -Routine care -Anticipate discharge tomorrow. Objective - Vital Signs/Intake & Output Vital Signs: Vital Signs x48h Temp Pulse Resp BP Pulse Ox 12/07/21 09:25 98.4 F 79 18 112/69 97 12/07/21 03:25 98.8 F 92 16 122/61 97 Intake & Output: Intake & Output 12/04/21 12/05/21 12/06/21 12/07/21 23:59 23:59 23:59 23:59 Intake Total 1000 2800 Output Total 3345 970 Balance -2345 1830 - Lab Results Fish Bones: 12/07/21 05:56 Other Labs: Lab Results x24hrs 12/07/21 Range/Units 05:56 WBC 13.6 H (4.8-10.8) x10^3/uL RBC 3.09 L (4.20-5.40) 10^6/uL Hgb 8.5 L (12.0-16.0) g/dL Hct 26.6 L (37.0-47.0) % MCV 86.1 (81.0-99.0) fL MCH 27.5 (27.0-31.0) pg MCHC 32.0 (32.0-36.0) g/dL RDW 12.4 (12.0-15.0) % Plt Count 219 (130-450) 10^3/uL MPV 9.6 (7.9-10.8) fL Neut # (Auto) 10.3 H (1.5-6.6) 10^3/uL Lymph # (Auto) 2.2 (1.5-3.5) 10^3/uL Lamar # (Auto) 0.9 (0.0-1.0) 10^3/uL Eos # (Auto) 0.0 (0.0-0.7) 10^3/uL Baso # (Auto) 0.0 (0.0-0.1) 10^3/uL Absolute Nucleated RBC 0.00 x10^3/uL Nucleated RBC % 0.0 /100WBC
[2021-12-08] MEDS: IBUPROFEN 600 MG TABLET PO SCH ×4 (05:07→22:54)
[2021-12-08] MEDS: DOCUSATE SODIUM 100 MG CAPSULE PO SCH ×2 (08:21→22:54)
[2021-12-08] MEDS: ACETAMINOPHEN 500 MG TABLET PO SCH ×2 (08:22→16:40)
--- NOTE | 2021-12-08 09:53 | PROVIDER PROGRESS NOTE ---
Subjective - Prog Note Date Prog Note Date: 12/08/21 - Subjective Pt reports feeling: Improved Subjective: Comfortable. Appropriate lochia. Ambulating without lightheadedness. Voiding. Tolerating regular diet. well with some assistance. Baby girl's weight at 9% weight loss. Mood is good. Objective - Vital Signs/Intake & Output Reviewed Vital Signs: Yes Vital Signs: Vital Signs x48h Temp Pulse Resp BP BP Pulse Ox 12/08/21 08:35 97.9 F 78 18 120/71 97 12/08/21 05:08 98.2 F 76 16 116/68 99 Intake & Output: Intake & Output 12/05/21 12/06/21 12/07/21 12/08/21 23:59 23:59 23:59 23:59 Intake Total 1000 2800 Output Total 3345 1570 Balance -2345 1230 - Objective General Appearance: positive: No acute distress Respiratory: positive: No respiratory distress Cardiovascular: positive: Other (Regular rate) Abdomen: positive: Other (Appropriately tender, soft, dressing removed and incision c/d/i) Skin: positive: Color nml Extremities: positive: Non-tender Neurologic/Psychiatric: positive: Oriented x3 - Lab Results Fish Bones: 12/07/21 05:56 Assessment/Plan - Problem List (1) care following delivery Impression: 31yo s/p PCD 6/27 following intolerance during ECV, POD#2 - Continue routine care - Plan for discharge tomorrow, will continue support and postoperative recovery (2) Acute blood loss as cause of postoperative anemia Impression: Asymptomatic, continue vitamins and oral iron
[2021-12-08] MEDS: FERROUS SULFATE 325 MG TABLET PO SCH (18:36)
[2021-12-09] MEDS: ACETAMINOPHEN 500 MG TABLET PO SCH ×2 (00:33→09:14)
[2021-12-09] MEDS: IBUPROFEN 600 MG TABLET PO SCH ×2 (05:13→12:12)
[2021-12-09] MEDS: DOCUSATE SODIUM 100 MG CAPSULE PO SCH (09:14)
[2021-12-09] MEDS: FERROUS SULFATE 325 MG TABLET PO SCH (09:14)
--- NOTE | 2021-12-09 10:53 | Discharge Plan ---
Discharge Plan Problem Reviewed?: Yes Disposition: Home, Self Care Condition: Good Diet: Regular Activity Restrictions: Activity as Tolerated Shower Restrictions: No Driving Restrictions: Yes (May drive when comfortable and not taking narcotics) Weight Bearing: Full Weight Instruction Topics: , , Depression No Smoking: If you smoke, Please STOP! Call for help. Follow-up with: Joanne Brink CNM, KELLY [Provider Admit Priv/Credential] -
--- NOTE | 2021-12-09 10:57 | DISCHARGE SUMMARY ---
"Discharge Summary Admit Date: 12/06/21 Discharge Date: 12/09/21 Discharging Provider: Eli Montana DO Code Status: Attempt Resuscitation Discharge Disposition: 01 Home, Self Care Discharge Facility Name: [facility] - DIAGNOSES Admission Diagnoses: 31yo at 37.4w Breech presentation Desires ECV NRFHT - HPI History of Present Illness: 31yo admitted on 12/06 for ECV for breech presentation at 37.4w. ECV not successful. intolerance noted after attempts at version. Decision made for PCD for NRFHT. - CONSULTS | PROCEDURES Consultations: Anesthesia Procedures: Epidural Primary section - HOSPITAL COURSE Hospital Course: 31yo admitted on 12/06 for ECV for breech presentation at 37.4w. ECV not successful. intolerance noted after attempts at version. Decision made for PCD for NRFHT. See uncomplicated PCD operative report. She is recovering appropriately and meets criteria for discharge. She is well although baby girl is having feeding challenges/weight loss and will still be a dmitted. Postoperative anemia, she will take vitamins and iron. She was given /posterative care discharge instructions and all questions answered. Discharge to boarding and she will follow up with Joanne NUNEZ and prn with OBGYN. - ALLERGIES Allergies/Adverse Reactions: Allergies Allergy/AdvReac Type Severity Reaction Status Date / Time No Known Drug Allergies Allergy Verified 07/06/21 14:40 - MEDICATIONS Home Medications: Ambulatory Orders Medication Instructions Recorded Confirmed Acetaminophen [Acetaminophen Extra 500 mg PO QID PRN #50 tablet 07/06/21 Strength] Meclizine HCl [Motion Sickness] 25 mg PO Q6H PRN #20 tablet 07/06/21 Pnv No.95/Ferrous Fum/Folic AC 2 tab PO DAILY 07/06/21 07/06/21 [ Tablet] dexAMETHasone [Decadron] 4 mg PO DAILY #5 tablet 07/06/21 - PHYSICAL EXAM AT DISCHARGE General Appearance: positive: No acute distress Respiratory: positive: No respiratory distress Cardiovascular: positive: Other (Regular rate) Abdomen: positive: Other (Incision c/d/i, soft, appropriately tender) Skin: positive: Color nml Extremities: positive: Non-tender Neurologic/Psychiatric: positive: Oriented x3 - LABS Result Diagrams: 12/07/21 05:56 - QUALITY (Female Hip Fx Only) Was patient sent home on osteoporosis medication?: No - FOLLOW UP Follow Up: Follow up with Joanne NUNEZ and prn with OBGYN - TIME SPENT Time Spent in Discharge (Minutes): 25"
[2021-12-09 14:29] VITALS: BP 124/76
--- NOTE | 2021-12-09 14:34 | Labor Flowsheet ---
Labor Flowsheet Datetime Report Generated by CPN: 12/09/2021 14:34 Datetime: 12/06/2021 16:14 VITAL SIGNS NBP Sys/Sirisha/Mean (mmHg): 136 : 80 : 92 Pulse: 107 COMMUNICATION LaborFlag: Antepartum Datetime: 12/06/2021 12:29 VAGINAL EXAM Membranes Ruptured Date/Time: 12/06/2021 10:21 Membranes Rupture Method: Artificial Amniotic Fluid Color: Clear Amniotic Fluid Amount: Moderate
== END 2021-12-09 13:00 | disposition home or self-care (01) | DRG 787 ==
LOC: WFO 06:49 → FBP 06:52 → WFO 10:49
PROVIDERS: ADMIT Obstetrics & Gynecology; ATTEND Obstetrics & Gynecology
PROC: 10D00Z1 Extraction of Products of Conception, Low, Open Approach (ICD-10-PCS; principal; 2021-12-06 10:00)
DX: O32.1XX0 Maternal care for breech presentation, not applicable or unspecified (principal); D62 Acute posthemorrhagic anemia; O90.81 Anemia of the puerperium; O76 Abnormality in fetal heart rate and rhythm complicating labor and delivery; Z3A.37 37 weeks gestation of pregnancy; Z37.0 Single live birth
CPT/HCPCS: 36415; 76815; 85025; 86850; 86900; 86901; A9270; J0131; J7120

== ENCOUNTER 2022-10-23 19:11 | Emergency (ER) | payer BC ==
[2022-10-23 19:24] VITALS: BP 156/103
[2022-10-23] MEDS ORDERED: LIDOCAINE 1%-EPI 1:100000 20 ML MDV SUBQ STA (19:27)
--- NOTE | 2022-10-23 20:01 | ED Physician Documentation ---
PD HPI FEMALE - Stated complaint Stated Complaint: FEMALE - Chief complaint Chief Complaint: Wound - History obtained from History obtained from: Patient - History of Present Illness Timing - onset: How many days ago (3-4) Timing - duration: Days (3-4) Timing - details: Abrupt onset, Still present Associated symptoms: Vaginal discharge, Genital sore/lesion. No: Fever, Vaginal bleeding Contributing factors: Sexually active. No: Exposed to STD OB-EDITOR CONTINUITY AND SCRIPT History: G (1), P (1 with 8 month old child at home.) Similar symptoms before: Has not had sx before Recently seen: Not recently seen Review of Systems Constitutional: denies: Fever, Chills GI: reports: Nausea. denies: Abdominal Pain, Vomiting, Diarrhea PD PAST MEDICAL HISTORY - Past Medical History Cardiovascular: None Respiratory: None Neuro: None Endocrine/Autoimmune: None - Past Surgical History Past Surgical History: No - Present Medications Home Medications: Ambulatory Orders Medication Instructions Recorded Confirmed Acetaminophen [Acetaminophen Extra 500 mg PO QID PRN #50 tablet 07/06/21 Strength] Meclizine HCl [Motion Sickness] 25 mg PO Q6H PRN #20 tablet 07/06/21 Pnv No.95/Ferrous Fum/Folic AC 2 tab PO DAILY 07/06/21 07/06/21 [ Tablet] dexAMETHasone [Decadron] 4 mg PO DAILY #5 tablet 07/06/21 Doxycycline Hyclate 100 mg PO BID 7 Days #14 cap 10/23/22 Naproxen 500 mg PO BID #20 tab 10/23/22 - Allergies Allergies/Adverse Reactions: Allergies Allergy/AdvReac Type Severity Reaction Status Date / Time No Known Drug Allergies Allergy Verified 10/23/22 19:24 - Social History Does the pt smoke?: No Smoking Status: Never smoker Does the pt drink ETOH?: No Does the pt have substance abuse?: No - Immunizations Immunizations are current?: Yes PD ED PE NORMAL - Vitals Vital signs reviewed: Yes - General General: Alert and oriented X 3, Well developed/nourished, Other (appears in pain. 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 There is some drainage of white purulence from medial labial fold. No fluctuance felt in area but general swelling. ) - Derm Derm: Normal color, Warm and dry - Neuro Neuro: Alert and oriented X 3 Results - Vitals Vitals: Vital Signs - 24 hr 10/23/22 19:21 Temperature 35.9 C L Heart Rate 86 Respiratory 16 Rate Blood Pressure 156/103 H O2 Saturation 98 Oxygen O2 Source Room air - Labs Labs: Microbiology 10/23/22 20:30 Wound Culture - Preliminary Skin - Abscess Laboratory Tests 10/23/22 20:30 C. glabrata (PCR) NEGATIVE C. krusei (PCR) NEGATIVE Gisel species DNA NEGATIVE T. vaginalis (PCR) NEGATIVE Bact Vaginosis (PCR) NEGATIVE PD Medical Decision Making - ED course Complexity details: considered differential (right labial infection/abscess. It is already draining yet it extends beyond just a single cyst area. Therefore it does not seem to need I&D but does need antibiotics for tissue infection component. Start with Doxy pending culture. She declined opioid pain meds. ), d/w patient Departure - Departure Disposition: 01 Home, Self Care Clinical Impression: Labial infection Condition: Stable Record reviewed to determine appropriate education?: Yes Prescriptions: Doxycycline Hyclate 100 mg PO BID 7 Days #14 cap Naproxen 500 mg PO BID #20 tab Comments: This does appear to be a labial infection. It is already draining some and so I would continue with the warm moist soaks or towels to continue to promote drainage. However it does appear extensive enough to warrant antibiotics and anti-inflammatories as well. I sent your prescriptions to your preferred pharmacy, [facility] in [place]. We are you were given an initial dose this evening. I did do a culture of the discharge. We will call you in a couple of days with the culture results if there needs to be a change in antibiotic choice. Follow-up with your primary care if not improving quite well over the next 2 to 3 days and resolved by 3 to 5 days. Continue with Tylenol 4 times daily regularly for pain as well. Discharge Date/Time: 10/23/22 20:55
[2022-10-23] MEDS ORDERED: IBUPROFEN 600 MG TABLET PO STA (20:37)
[2022-10-23] MEDS ORDERED: DOXYCYCLINE 100 MG TABLET PO STA (20:37)
[2022-10-23 22:24] LABS: BACTERIAL VAGINOSIS DNA NEGATIVE (NEGATIVE)
[2022-10-23 22:25] LABS: CANDIDA GLABRATA DNA NEGATIVE (NEGATIVE); CANDIDA GROUP DNA NEGATIVE (NEGATIVE); CANDIDA KRUSEI DNA NEGATIVE (NEGATIVE); TRICHOMONAS VAGINALIS DNA NEGATIVE (NEGATIVE)
== END 2022-10-23 20:55 | disposition home or self-care (01) ==
LOC: ED 19:11
DX: N76.2 Acute vulvitis (principal)
CPT/HCPCS: 81514; 87070; 87205; 99283; A9270; 87077; 87181